=== PATIENT | male | born 1990 | race Caucasian/White ===

== ENCOUNTER 2017-05-06 11:04 | Emergency (ER) | payer BC, OTHER ==
[2017-05-06 11:18] VITALS: BP 119/74; PULSE 100; TEMP 98; BMI 25.9
[2017-05-06] MEDS ORDERED: IBUPROFEN 600 MG TABLET (FP) PO ONE ×2 (11:53→11:57)
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
== END 2017-05-06 12:36 | disposition home or self-care (01) ==
LOC: JERFT 11:04
PROC: 2W3MX1Z Immobilization of Left Lower Extremity using Splint (ICD-10-PCS; principal; 2017-05-06)
DX: S93.432A Sprain of tibiofibular ligament of left ankle, initial encounter (principal); V03.00XA Pedestrian on foot injured in collision with car, pick-up truck or van in nontraffic accident, initial encounter; Y92.414 Local residential or business street as the place of occurrence of the external cause; Y93.89 Activity, other specified
CPT/HCPCS: 73610-TC-LT; 73630-TC-LT; 99281-25